=== PATIENT | female | born 2000 | race Caucasian/White ===

== ENCOUNTER 2022-08-24 03:38 | Emergency (ER) | payer OTHER ==
[2022-08-24] MEDS ORDERED: Mag-Al Plus 1200 MG/1200 MG/120 MG/30 ML UDCUP ONE (05:03)
[2022-08-24] MEDS ORDERED: Lidocaine Viscous Sol 2% 15 ml UD Cup ONE (05:04)
== END 2022-08-24 06:00 | disposition home or self-care (01) ==
LOC: CSHERS 03:38
DX: K29.70 Gastritis, unspecified, without bleeding (principal); R07.89 Other chest pain
CPT/HCPCS: 93005; 93010